=== PATIENT | male | born 1990 | race African-American/Black ===

== ENCOUNTER 2024-11-02 23:29 | Emergency (ER) | payer OTHER ==
[2024-11-02] MEDS ORDERED: Naloxone 2 MG/2 ML Syringe IVPUSH PRN (23:34)
[2024-11-02] MEDS: fentaNYL 100 MCG/2 ML SDV IVPUSH ONE (23:38)
[2024-11-02] MEDS: fentaNYL 100 MCG/2 ML SDV ONE (23:45)
[2024-11-02] MEDS: ceFAZolin 2 GM Vial IVPUSH ONE (23:49)
[2024-11-02] MEDS: Diphtheria,Pertussis(Acell),Tetanus Vaccine 0.5 ML Syringe IM ONE (23:51)
[2024-11-02] MEDS: Ondansetron 4 MG/2 ML SDV IVPUSH ONE (23:57)
[2024-11-03 00:05] LABS: BASOPHILS PERCENT AUTO 0.2 % (0.0-1.0); EOSINOPHILS PERCENT AUTO 2.1 % (1.0-3.0); HEMATOCRIT 42.1 % (40.0-54.0); HEMOGLOBIN 14.1 g/dL (14.0-18.0); LYMPHOCYTES PERCENT AUTO 23.6 % (20.5-50.1); MEAN CORPUSCULAR HEMOGLOBIN 28.3 pg (27.0-34.0); MEAN CORPUSCULAR HGB CONC 33.5 g/dL (33.0-35.0); MEAN CORPUSCULAR VOLUME 84.4 fL (80-100); MONOCYTES PERCENT AUTO 5.9 % (2-8); NEUTROPHILS PERCENT AUTO 68.2 % (42.2-75.2); PLATELET COUNT,PLT 259 10^3/uL (150-450); RED BLOOD CELL COUNT 4.99 10^6/uL (4.6-6.2); WHITE BLOOD CELL COUNT,WBC 14.1 10^3/uL (5.0-10.0)
[2024-11-03] MEDS: Bupivacaine 0.5% 30 ML SDV INFILT ONE (00:10)
[2024-11-03] MEDS: Sodium Chloride 0.9% 1,000 ML IV ONE (00:18)
[2024-11-03] MEDS: Ondansetron 4 MG/2 ML SDV ONE (00:18)
[2024-11-03 00:24] LABS: ALANINE AMINOTRANSFERASE,ALT 30 U/L (16-63); ALBUMIN 3.9 g/dL (3.4-5.0); ALKALINE PHOSPHATASE 85 U/L (46-116); ANION GAP 16.3 mEq/L (7-13); ASPARTATE AMNIOTRANSFERASE,AST 19 U/L (15-37); BILIRUBIN TOTAL 0.4 mg/dL (0.2-1.0); BLOOD UREA NITROGEN,BUN 14 mg/dL (7-18); BUN/CREATININE RATIO 9.9 (No establ ref range); CALCIUM 9.4 mg/dL (8.5-10.1); CARBON DIOXIDE,CO2 22 mmol/L (21-32); CHLORIDE,CL 103 mmol/L (98-107); CREATININE 1.42 mg/dL (0.70-1.30); GLUCOSE RANDOM 164 mg/dL (70-99); MAGNESIUM 1.5 mg/dL (1.8-2.4); PROTEIN TOTAL,TP 7.7 g/dL (6.4-8.2); SODIUM,NA 138 mmol/L (136-145)
[2024-11-03 00:25] LABS: ESTIMATED GFR 67 mL/min (>=60); POTASSIUM,K 3.3 mmol/L (3.5-5.1)
[2024-11-03] MEDS: fentaNYL 100 MCG/2 ML SDV IVPUSH ONE ×2 (02:50→03:34)
[2024-11-03] MEDS: fentaNYL 100 MCG/2 ML SDV ONE (03:23)
[2024-11-03] MEDS: Bacitracin/Neomycin/Polymyxin B Oint 28.4 GM Tube ONE (03:34)
[2024-11-03] MEDS: Bacitracin/Neomycin/Polymyxin B Oint 28.4 GM Tube TOP ONE (03:50)
== END 2024-11-03 04:05 | disposition home or self-care (01) ==
LOC: DL.ED 23:29
DX: S97.111A Crushing injury of right great toe, initial encounter (principal); Z23 Encounter for immunization; W20.8XXA Other cause of strike by thrown, projected or falling object, initial encounter; Y93.89 Activity, other specified; Y99.0 Civilian activity done for income or pay
CPT/HCPCS: 11760; 36415; 73630; 80053; 83735; 85025; 90471; 90715; 96374; 96375; 96376; 99282; 99283; A9270; J0665; J0690; J2405; J3010; J7030